=== PATIENT | male | born 1960 | race Hispanic/Latino ===

== ENCOUNTER 2023-02-01 02:58 | Emergency (ER) | payer BC ==
[~2023-02-01] VITALS: Ht 172.7 cm; Wt 87.1 kg
[~2023-02-01 02:58] MED LIST: FAMO40TA7 PO; MONT-39 PO; TAMS-1 PO
[2023-02-01 03:03] VITALS: BP 142/60; PULSE 74; RESP 14; O2SAT 97
[2023-02-01 03:17] LABS: BASOPHILS # (AUTO) 0.02 K/uL (0.00-0.20); BASOPHILS % (AUTO) 0.3 % (0.0-5.0); HEMATOCRIT 40.5 % (42-54); IMMATURE GRANULOCYTE ABSOLUTE 0.01 K/uL (0-1); LYMPHOCYTES # (AUTO) 2.8 K/uL (1.0-4.8); LYMPHOCYTES % (AUTO) 46.3 % (21.0-51.0); MEAN CORPUSCULAR HEMOGLOBIN 29.8 pg (27.0-33.0); MEAN CORPUSCULAR HGB CONC 33.1 g/dL (32.0-36.0); MEAN CORPUSCULAR VOLUME 90.2 fL (79-99); MONOCYTES # (AUTO) 0.4 K/uL (0.1-1.0); MONOCYTES % (AUTO) 7.1 % (3.0-13.0); NEUTROPHILS # (AUTO) 2.5 K/uL (1.8-7.7); NEUTROPHILS % (AUTO) 41.1 % (40.0-77.0); PLATELET COUNT (AUTO) 252 K/uL (130-400); RED BLOOD CELL COUNT(AUTO) 4.49 MIL/uL (4.50-6.20); RED CELL DISTRIBUTION WIDTH 13.8 % (11.0-15.5); WHITE BLOOD COUNT (AUTO) 6.1 K/uL (4.8-10.8)
[2023-02-01 03:27] LABS: CREATININE 0.7 mg/dL (0.5-1.5)
[2023-02-01 03:33] LABS: ALBUMIN 3.8 g/dL (3.5-5.0); BILIRUBIN,TOTAL 0.4 mg/dL (0.2-1.0); TOTAL PROTEIN, SERUM 7.4 g/dL (6.0-8.3)
== END 2023-02-01 03:48 | disposition home or self-care (01) ==
LOC: EDH 02:58
DX: I63.9 Cerebral infarction, unspecified (principal); I10 Essential (primary) hypertension; Z86.73 Personal history of transient ischemic attack (TIA), and cerebral infarction without residual deficits
CPT/HCPCS: 36415; 80053; 82550; 84484; 85025; 93005

== ENCOUNTER → 2023-06-12 | Outpatient (CLI) | payer OTHER | END | disposition home or self-care (01) | LOC: SHCH 14:35 | PROVIDERS: ATTEND Student in an Organized Health Care Education/Training Program | DX: R06.00 Dyspnea, unspecified (principal); R07.9 Chest pain, unspecified | CPT/HCPCS: 93306 ==

== ENCOUNTER 2023-08-27 04:02 | Emergency (ER) | payer OTHER ==
[~2023-08-27] VITALS: Ht 162.6 cm; Wt 70.3 kg
[2023-08-27 04:04] VITALS: BP 149/92; PULSE 68; RESP 18
[2023-08-27 04:32] LABS: BASOPHILS # (AUTO) 0.04 K/uL (0.00-0.20); BASOPHILS % (AUTO) 0.6 % (0.0-5.0); EOSINOPHILS # (AUTO) 0.04 K/uL (0.00-0.70); EOSINOPHILS % (AUTO) 0.6 % (0.0-8.0); HEMATOCRIT 43.7 % (42-54); IMMATURE GRANULOCYTE ABSOLUTE 0.01 K/uL (0-1); LYMPHOCYTES % (AUTO) 26.9 % (21.0-51.0); MEAN CORPUSCULAR HEMOGLOBIN 30.9 pg (27.0-33.0); MEAN CORPUSCULAR HGB CONC 34.6 g/dL (32.0-36.0); MEAN CORPUSCULAR VOLUME 89.4 fL (79-99); MONOCYTES # (AUTO) 0.4 K/uL (0.1-1.0); MONOCYTES % (AUTO) 5.8 % (3.0-13.0); NEUTROPHILS # (AUTO) 4.8 K/uL (1.8-7.7); PLATELET COUNT (AUTO) 263 K/uL (130-400); RED BLOOD CELL COUNT(AUTO) 4.89 MIL/uL (4.50-6.20); RED CELL DISTRIBUTION WIDTH 12.4 % (11.0-15.5); WHITE BLOOD COUNT (AUTO) 7.3 K/uL (4.8-10.8)
[2023-08-27 04:49] LABS: CREATININE 0.8 mg/dL (0.5-1.3); POTASSIUM 4.2 mmol/L (3.5-5.1)
[2023-08-27 04:52] LABS: ALBUMIN 4.4 g/dL (3.5-5.0); BILIRUBIN,TOTAL 0.7 mg/dL (0.2-1.0); TOTAL PROTEIN, SERUM 7.7 g/dL (6.0-8.3)
[2023-08-27 05:07] LABS: B-TYPE NATRIURETIC PEPTIDE 22 pg/mL (0-100)
[2023-08-27 05:20] LABS: APPEARANCE,URINE CLEAR (CLEAR); BILIRUBIN,URINE NEGATIVE (NEGATIVE); COLOR,URINE COLORLESS (YELLOW); GLUCOSE, URINE (UA) NEGATIVE (NEGATIVE); KETONES,URINE NEGATIVE (NEGATIVE); LEUKOCYTE ESTERASE ,URINE NEGATIVE Leu/uL (NEGATIVE); NITRATE,URINE NEGATIVE (NEGATIVE); OCCULT BLOOD,URINE NEGATIVE (NEGATIVE); PH,URINE 6.5 (5.0-8.0); PROTEIN,URINE NEGATIVE (NEGATIVE); UROBILINOGEN,URINE 0.2 mg/dL (0.2-1.0)
[2023-08-27 05:21] LABS: ADD UA MICROSCOPIC NO
[2023-08-27 05:26] LABS: AMPHET/METH SCREEN,URINE NEGATIVE (NEGATIVE); BARBITURATE SCREEN, URINE NEGATIVE (NEGATIVE); BENZODIAZEPINES SCREEN,URINE NEGATIVE (NEGATIVE); CANNABINOID SCREEN,URINE NEGATIVE (NEGATIVE); COCAINE SCREEN,URINE NEGATIVE (NEGATIVE); OPIATE SCREEN,URINE NEGATIVE (NEGATIVE); PHENCYCLIDINE SCREEN,URINE NEGATIVE (NEGATIVE)
[2023-08-27] MEDS: LORAZEPAM 0.5 MG TABLET PO ONE (05:33)
== END 2023-08-27 06:16 | disposition home or self-care (01) ==
LOC: EDH 04:02
DX: N28.89 Other specified disorders of kidney and ureter (principal); I10 Essential (primary) hypertension; I63.9 Cerebral infarction, unspecified; Z86.73 Personal history of transient ischemic attack (TIA), and cerebral infarction without residual deficits; Z86.018 Personal history of other benign neoplasm
CPT/HCPCS: 36415; 71045; 80053; 80305; 81003; 83880; 84484; 85025; 93005